=== PATIENT | female | born 1945 | race Caucasian/White ===

== ENCOUNTER 2021-10-12 10:16 | Outpatient (CLI) | payer MEDICARE, OTHER, SELFPAY ==
[2021-10-12 11:54] LABS: Hematocrit 40.1 % (37.0-47.0); Hemoglobin 12.8 g/dL (12.0-15.0)
== END 2021-10-12 10:17 | disposition home or self-care (01) ==
LOC: ANHSURGERY 10:24
PROVIDERS: Anesthesiology; PCP Family Medicine; Visit Provider Urology
DX: D64.9 Anemia, unspecified (principal); N28.89 Other specified disorders of kidney and ureter
CPT/HCPCS: 36415; 85014; 85018; 87077; 87086; 87186

== ENCOUNTER 2021-10-30 02:00 | Day surgery (SDC) | payer MEDICARE, OTHER, SELFPAY ==
[2021-10-11 12:38] VITALS: BMI 39.2
--- NOTE | 2021-10-11 13:01 | PC.NURSE ---
Report to the Outpatient Waiting Room, entrance under the green pavilion located off [facility], at time _0930_ on date _10/16/21_. OR Time: _1130_. - You and your visitor will be asked a series of questions to screen for COVID 19 for your protection. - Only one visitor is allowed at this time. - The patient visitor is requested to leave or wait in car when not with patient. - A mask is required within the hospital. Patients may have clear liquids (water, carbonated beverages, clear teas, apple juice) until 3 hours prior to surgery (0830 AM) with a maximum of 20 ounces. - No food from midnight until time of surgery Take the following medications with a SIP of water the morning of surgery: _AMLODIPINE, ISOSORBIDE, LEVOTHYROXINE, METOPROLOL & PAIN MEDS IF NEEDED__ Medications to discontinue per physician _ELIQUIS 2 DAYS PRIOR TO SURGERY, Date to take last dose 10/13/21__ _ ALL SUPPLEMENTS AND VITAMINS 3 DAYS PRIOR TO SURGERY, Date to take last dose 10/12/21_ Please no make-up, nail macedonian, hairspray, perfume, deodorant, or body powder the day of surgery. No jewelry (including any body piercings) or valuables the day of surgery, leave them at home. Please take a shower or bath the night before, or the morning of, surgery with an antibacterial soap. Wear comfortable, loose fitting clothing. - Jewelry must be removed prior to entering the operating room. Rings and piercings that are not removed may be cut off. - The hospital will not accept responsibility for valuables. - Please leave all valuables, including medications, at home the day of surgery. If you are going home after surgery, a licensed trackless trolley driver must drive you home. - NO public transportation without another adult. - We recommend that an adult stay with you for 24 hours following discharge. - We also recommend that you do not drive, make important decision, drink alcoholic beverages, or take any drugs that were not prescribed by your health care provider for at least 24 hours after your discharge time. Follow any additional instructions given to you from your surgeon. If you or anyone in your household have experienced Covid symptoms in the past week, please notify your surgeon or the nurse liaison at the phone number below for possible testing. Telephone instructions given to ___PT and asked if any additional questions and then verbalized understanding. Patient advised to call surgeon office or pre surgery nurse liaison [phone] if any additional questions.
--- NOTE | 2021-10-15 13:33 | WPDANESEPPF ---
Anes - Initial Pre Proc Eval Procedure: Operation Date: 10/16/21 11:30 Proposed Procedures p Cystoscopy, Right Retrograde Pyelogram, Right Ureteroscopy with Possible Biopsy, Right Stent Placement, Holmium Laser Procedure - Khai Aranda MD Date/Time: 10/15/21 13:33 Surgeon: Khai Aranda MD Pre Op Diagnosis: gross hematuria, renal mass Patient Data Age: 76 Gender: F Height: 1.7 m Weight: 113.63 kg Allergies Allergy/AdvReac Type Severity Reaction Status Date / Time shellfish derived Allergy Anaphylaxis Verified 10/11/21 12:26 codeine AdvReac Nausea and Verified 10/11/21 12:26 Vomiting & PAEZ meperidine [From Demerol] AdvReac Nausea and Verified 10/11/21 12:26 Vomiting & PAEZ Home Medications Medication Instructions Recorded Confirmed Type Bifidobacterium infantis 10.5 mg 10.5 mg PO QAM 10/11/21 10/11/21 History (10 million cell) chewable tablet (Align) acetaminophen 500 mg tablet 1,000 mg PO QID PRN Pain 10/11/21 10/11/21 History amlodipine 10 mg tablet 10 mg QAM 10/11/21 10/11/21 History apixaban 5 mg tablet (Eliquis) 5 mg BID 10/11/21 10/11/21 History atorvastatin 40 mg tablet 80 mg HS 10/11/21 10/11/21 History calcium carbonate 600 mg-vitamin 1 tablet PO QAM 10/11/21 10/11/21 History D3 20 mcg (800 unit) chewable tablet (Caltrate 600 plus D) cholecalciferol (vitamin D3) 125 125 mcg PO DAILY 10/11/21 10/11/21 History mcg (5,000 unit) capsule diclofenac sodium 1 % topical gel See Rx Instructions .Route .COMPLEX 10/11/21 10/11/21 History ferrous sulfate 325 mg (65 mg 325 mg PO QAM 10/11/21 10/11/21 History iron) tablet (iron) isosorbide mononitrate 30 mg 30 mg PO QAM 10/11/21 10/11/21 History tablet,extended release 24 hr levothyroxine 75 mcg tablet 75 mcg QAM 10/11/21 10/11/21 History losartan 25 mg tablet 25 mg QAM 10/11/21 10/11/21 History metoprolol succinate 100 mg 100 mg PO QAM 10/11/21 10/11/21 History tablet,extended release 24 hr omeprazole 40 mg capsule,delayed 40 mg QAM 10/11/21 10/11/21 History release phentermine 37.5 mg tablet 37.5 mg QAM 10/11/21 10/11/21 History sucralfate 1 gram tablet 1 g BID 10/11/21 10/11/21 History tramadol 50 mg tablet 50 mg TID PRN Pain 10/11/21 10/11/21 History Results Review: All pre-operative results and documents have been reviewed as part of the pre-operative evaluation. [facility] Past Medical History Medical History (Updated 10/15/21 @ 13:35 by Carlos Almonte DO) CAD (coronary artery disease) GERD (gastroesophageal reflux disease) Hypertension Hypothyroidism CHELI (obstructive sleep apnea) CPAP Renal mass Walker as ambulation aid Surgical History Surgical History (Updated 10/15/21 @ 13:35 by Carlos Almonte DO) History of hysterectomy History of left mastectomy History of total knee replacement Social History Social History Smoking status: Never smoker Second hand tobacco smoke exposure: No Alcohol intake: current Alcohol use details: STATES VERY RARE - MAYBE 1 EVERY 6 MONTHS Substance use: never Substance use type: does not use Spiritual care concerns: No Anes - Eval Final PreProcedure Day of Procedure 10/15/21 13:33 Patient weight: obese Heart: regular rate and rhythm Lungs: clear to auscultation Airway: Mallampati scale class II Neurological: alert and oriented Last oral intake: >/= 8 hours ASA classification: III Emergent: no Anesthetic plan: proceed Anesthesia type and monitoring: general LMA and standard monitoring Results Review: All pre-operative results and documents have been reviewed as part of the pre-operative evaluation. Informed Consent: The patient's anesthetic plan and its attendant risks and benefits were discussed with the patient/family/POA. Questions were solicited and answers provided to the satisfaction of the patient/family/POA.
--- NOTE | 2021-10-24 09:40 | PC.NURSE ---
Report to the Outpatient Waiting Room, entrance under the green pavilion located off [facility], at time _0630 on date __10/30/21 . OR Time: __829____. - You and your visitor will be asked a series of questions to screen for COVID 19 for your protection. - Only one visitor is allowed at this time. - The patient visitor is requested to leave or wait in car when not with patient. - A mask is required within the hospital. Patients may have clear liquids (water, carbonated beverages, clear teas, apple juice) until 3 hours prior to surgery with a maximum of 20 ounces. - No food from midnight until time of surgery - Infants may have breast milk until 4 hours before surgery, infant formula 6 hours prior to surgery. - Children will be allowed to drink immediately following surgery. If applicable, please bring a bottle or sippy cup to assist with drinking. Juice, water, soda, and popsicles are readily available. For infants on formula, please bring formula the day of surgery. Pacifiers are allowed. Take the following medications with a SIP of water the morning of surgery: _AMLODIPINE,ISOSORBIDE,LEVOTHYROXINE,METOPROLOL AND PAIN PILL IF NEEDED Medications to discontinue per physician _PER PT STATES __ELIQUIS 2 DAYS PRE OP___. ALL VITAMINS AND SUPPLEMENTS STATES LAST DOSE 10/12/21 Date to take last dose____10/27/21 Please no make-up, nail tajik, hairspray, perfume, deodorant, or body powder the day of surgery. No jewelry (including any body piercings) or valuables the day of surgery, leave them at home. Please take a shower or bath the night before, or the morning of, surgery with an antibacterial soap. Wear comfortable, loose fitting clothing. Children are encouraged to wear pajamas. - Jewelry must be removed prior to entering the operating room. Rings and piercings that are not removed may be cut off. - The hospital will not accept responsibility for valuables. - Please leave all valuables, including medications, at home the day of surgery. If you are going home after surgery, a licensed services delivery driver must drive you home. - NO public transportation without another adult. - We recommend that an adult stay with you for 24 hours following discharge. - We also recommend that you do not drive, make important decision, drink alcoholic beverages, or take any drugs that were not prescribed by your health care provider for at least 24 hours after your discharge time. For Pediatric surgeries, we recommend two adults accompany the child home (only one inside the building at this time). Follow any additional instructions given to you from your surgeon. If you or anyone in your household have experienced Covid symptoms in the past week, please notify your surgeon or the nurse liaison at the phone number below for possible testing. Telephone instructions given to ___PATIENT and asked if any additional questions and then verbalized understanding. Patient advised to call surgeon office or pre surgery nurse liaison [phone] if any additional questions.
--- NOTE | 2021-10-24 09:43 | PC.NURSE ---
PT STATES POSITIVE URINE CULTURE. TOOK CIPRO X 5 DAYS. LAST DOSE 10/20/21. WENT TO DR MEDEL OFFICE 10/23/21 FOR REPEAT URINE CULTURE.NO OTHER CHANGE IN HEALTH HX SINCE LAST INTERVIEW ON 10/11/21
--- NOTE | 2021-10-29 13:52 | WPDANESEPPF ---
Anes - Initial Pre Proc Eval Procedure: Operation Date: 10/30/21 08:30 Proposed Procedures p Cystoscopy, Right Retrograde Pyelogram, Right Ureteroscopy with Possible Biopsy, Right Stent Placement, Holmium Laser Procedure - Khai Aranda MD Date/Time: 10/29/21 13:52 Surgeon: Khai Aranda MD Pre Op Diagnosis: gross hematuria, renal mass Patient Data Age: 76 Gender: F Height: 1.7 m Weight: 113.63 kg Allergies Allergy/AdvReac Type Severity Reaction Status Date / Time shellfish derived Allergy Anaphylaxis Verified 10/30/21 07:01 codeine AdvReac Nausea and Verified 10/30/21 07:01 Vomiting & PAEZ meperidine [From Demerol] AdvReac Nausea and Verified 10/30/21 07:01 Vomiting & PAEZ Home Medications Medication Instructions Recorded Confirmed Type Bifidobacterium infantis 10.5 mg 10.5 mg PO QAM 10/11/21 10/11/21 History (10 million cell) chewable tablet (Align) acetaminophen 500 mg tablet 1,000 mg PO QID PRN Pain 10/11/21 10/11/21 History amlodipine 10 mg tablet 10 mg QAM 10/11/21 10/11/21 History apixaban 5 mg tablet (Eliquis) 5 mg BID 10/11/21 10/30/21 History atorvastatin 40 mg tablet 80 mg HS 10/11/21 10/11/21 History calcium carbonate 600 mg-vitamin 1 tablet PO QAM 10/11/21 10/11/21 History D3 20 mcg (800 unit) chewable tablet (Caltrate 600 plus D) cholecalciferol (vitamin D3) 125 125 mcg PO DAILY 10/11/21 10/11/21 History mcg (5,000 unit) capsule diclofenac sodium 1 % topical gel See Rx Instructions .Route .COMPLEX 10/11/21 10/11/21 History ferrous sulfate 325 mg (65 mg 325 mg PO QAM 10/11/21 10/11/21 History iron) tablet (iron) isosorbide mononitrate 30 mg 30 mg PO QAM 10/11/21 10/11/21 History tablet,extended release 24 hr levothyroxine 75 mcg tablet 75 mcg QAM 10/11/21 10/11/21 History losartan 25 mg tablet 25 mg QAM 10/11/21 10/11/21 History metoprolol succinate 100 mg 100 mg PO QAM 10/11/21 10/11/21 History tablet,extended release 24 hr omeprazole 40 mg capsule,delayed 40 mg QAM 10/11/21 10/11/21 History release phentermine 37.5 mg tablet 37.5 mg QAM 10/11/21 10/11/21 History sucralfate 1 gram tablet 1 g BID 10/11/21 10/11/21 History tramadol 50 mg tablet 50 mg TID PRN Pain 10/11/21 10/11/21 History Patient hx anesthesia problems: none Family hx anesthesia problems: none Results Review: All pre-operative results and documents have been reviewed as part of the pre-operative evaluation. [facility] Past Medical History Medical History (Updated 10/30/21 @ 07:45 by Carlos Almonte DO) CAD (coronary artery disease) Clotting disorder GERD (gastroesophageal reflux disease) Hypertension Hypothyroidism CHELI (obstructive sleep apnea) CPAP Renal mass Walker as ambulation aid Surgical History Surgical History (Updated 10/15/21 @ 13:35 by Carlos Almonte DO) History of hysterectomy History of left mastectomy History of total knee replacement Social History Social History Smoking status: Never smoker Second hand tobacco smoke exposure: No Alcohol intake: current Alcohol use details: STATES VERY RARE - MAYBE 1 EVERY 6 MONTHS Substance use: never Substance use type: does not use Living arrangements: alone Spiritual care concerns: No Anes - Eval Final PreProcedure Day of Procedure 10/29/21 13:52 Patient weight: obese Heart: regular rate and rhythm Lungs: clear to auscultation Airway: Mallampati scale class II Neurological: alert and oriented Last oral intake: >/= 8 hours ASA classification: III Emergent: no Anesthetic plan: proceed Anesthesia type and monitoring: general LMA and standard monitoring Results Review: All pre-operative results and documents have been reviewed as part of the pre-operative evaluation. Informed Consent: The patient's anesthetic plan and its attendant risks and benefits were discussed with the patient/family/POA. Questions were solicited and answers provided t
[2021-10-30] VITALS (8 sets, daily range): BP systolic 102–141; BP diastolic 47–85; PULSE 68–76; RESP 12–20; TEMP 36.2–36.6; O2SAT 93–100
--- NOTE | ~2021-10-30 | XR_ITS ---
EXAMINATION: XR retrograde pyelo w/stent RT DATE: 10/30/2021 09:05 INDICATION: Right internal ureteral stent placement TECHNIQUE: Fluoroscopic images from a right internal ureteral stent placement are submitted for beck nobles 29 seconds of fluoroscopy time. FINDINGS: There is a right double-J internal ureteral stent projecting in expected position, with proximal [place] loop at the level of the renal pelvis and distal loop in the pelvis within the bladder lumen. IMPRESSION: 1. Right internal ureteral stent placement. Please refer to real-time procedural findings for detai ls. Reviewed, dictated and finalized at location B. IMPRESSION: 1. Right internal ureteral stent placement. Please refer to real-time procedu ral findings for details.
--- NOTE | 2021-10-30 06:14 | ECG_ITS ---
Measurements Intervals [place] Rate: 68 P: 1 SC: 190 QRS: 12 QRSD: 96 T: 8 QT: 387 QTc: 413 Interpretive Statements SINUS RHYTHM NORMAL ECG NO PREVIOUS ECG AVAILABLE FOR COMPARISON Electronically Signed On 10-30-2021 8:49:19 CDT by Beto Amos M.D.
[2021-10-30] MEDS: LACTATED RINGERS 1,000 ML 30 ML IV CONT (07:18)
--- NOTE | 2021-10-30 07:20 | WPDHPUPDATE1 ---
History and Physical Update Update Date/Time: 10/30/21 07:20 History and Physical has been reviewed, including an updated exam of the patient. There are NO changes in the patient's condition. Risks, benefits, and alternatives have been discussed and questions answered. Patient agrees to proceed with procedure. Proceed with cysto, right retrograde, right ureteroscopy with possible biopsy, laser, stent placement.
[2021-10-30] MEDS: ceFAZolin 2 GM/D5W 50 ML 2 GM/50 ML BAG IVPB (08:06)
--- NOTE | 2021-10-30 08:32 | SUR.OPER ---
PATIENT TRANSFERED VIA LOG ROLL ON ROLLER BOARD DUE TO LOWER BACK PAIN/POSITIONING PRIOR TO INDUCTION PER PATIENT COMFORT/ALL ROOM STAFF AND SURGEON AWARE RIGHT LEG CANNOT BE REPOSITIONED.
[2021-10-30] MEDS: LIDOCAINE HCL 2% GEL UROJET 10 ML PKG MUCOUS MEM (08:58)
--- NOTE | 2021-10-30 09:00 | P.OP_ITS ---
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 Once anesthesia was obtained she was placed in dorsal lithotomy position and prepped and draped usual sterile fashion. Twenty-two Jordanian scope was inserted into the bladder. There were no tumors noted. The right ureteral orifice was cannulated with a [place] and a pyelogram was performed. Filling defect was noted in the right renal pelvis. Guidewire was inserted. Ureteral orifice was dilated with an 8/10 dilator. Mini flexible ureteral scope was inserted all the way up into the kidney. There were no ureteral lesions noted at this time. Upon entering the renal pelvis a papillary lesion was noted along the medial wall of the pelvis near the UPJ. Measure proximally 1.5 cm. There was some papillary lesions adjacent to the predominant lesion. No other lesions were noted in the calyces. Biopsy was then performed of this lesion and sent for pathologic review. Reinspection revealed no active bleeding. 4.8 Jordanian contour stent was then placed with the proximal end coiled in the renal pelvis and the distal in the bladder. Bladder was drained. 2% viscous lidocaine was inserted into the urethra the patient was taken recovery stable condition. She is instructed to call for path results in 1 week. Will make a decision regarding whether this could be amenable to laser although it is a fairly broad area verses right nephro ureterectomy Estimated Blood Loss 0 Drains Yes Packing No Pathology Yes Complications No immediate complications Condition Stable Disposition PACU
[2021-10-30] MEDS: fentaNYL CITRATE INJ (*CRX) 100 MCG/2 ML VIAL 25 MCG IV PUSH ×3 (09:11→09:34)
== END 2021-10-30 10:45 | disposition home or self-care (01) ==
PROVIDERS: PCP Family Medicine; Visit Provider Urology
PROC: (CPT 52352; principal; 2021-10-30 08:30)
DX: C65.1 Malignant neoplasm of right renal pelvis (principal); R31.0 Gross hematuria; I25.10 Atherosclerotic heart disease of native coronary artery without angina pectoris; I10 Essential (primary) hypertension; E03.9 Hypothyroidism, unspecified; G47.33 Obstructive sleep apnea (adult) (pediatric); K21.9 Gastro-esophageal reflux disease without esophagitis; D68.9 Coagulation defect, unspecified; E66.9 Obesity, unspecified; Z68.41 Body mass index [BMI] 40.0-44.9, adult
CPT/HCPCS: 52332; 52354; 74420; 88305; 93005; A9270; C1758; C1769; C2617; J0690; J1100; J2405; J2704; J3010; J7120; Q9966